=== PATIENT | female | born 1960 | race Asian ===

== ENCOUNTER 2024-08-11 07:36 | Inpatient (IN) | payer MEDICAID ==
[~2024-08-11] VITALS: Ht 154.9 cm; Wt 69.3 kg
[2024-08-11] VITALS (7 sets, daily range): BP systolic 113–120; BP diastolic 56–72; PULSE 74–99; RESP 12–20; TEMP 98–98.7; O2SAT 92–98
[~2024-08-11 07:36] MED LIST: ALBU108A5 IN; CELE200C PO; LISI-275 PO; MONT-8 PO
[2024-08-11] MEDS: ceFAZolin 2 GM/D5W50ml 50 ML IV ONE (07:49)
[2024-08-11] MEDS: EPINEPHrine HCL 1 MG/1 ML AMP ONE (08:09)
[2024-08-11] MEDS: VANCOMYCIN HCL 1000 MG VL ONE (08:10)
[2024-08-11] MEDS: KETOROLAC TROMETH 30 MG/ML 1ML VIAL ONE (08:10)
[2024-08-11] MEDS: TRANEXAMIC ACID 20 ML ONE (08:11)
[2024-08-11] MEDS: ROPIVACAINE 0.5% (5MG/ML) 20ML AMPULE IJ ONE (08:11)
[2024-08-11] MEDS ORDERED: KETOROLAC TROMETH 30 MG/ML 1ML VIAL ONE (08:28)
[2024-08-11] MEDS: GABAPENTIN 300 MG CAP PO ONE (08:28)
[2024-08-11] MEDS ORDERED: KETAMINE 50mg/ML 1ml syringe ONE (08:28)
[2024-08-11] MEDS: ACETAMINOPHEN IV 1000 MG/100ML (10MG/ML) IV ONE (08:28)
[2024-08-11] MEDS ORDERED: ONDANSETRON HCL 4 MG/2 ML VIAL ONE (08:28)
[2024-08-11] MEDS ORDERED: GLYCOPYRROLATE 0.2 MG/ML 1ML VIAL ONE (08:28)
[2024-08-11] MEDS ORDERED: LIDOCAINE 1% INJ PF 5ML AMP ONE (08:28)
[2024-08-11] MEDS: CELECOXIB 100 MG CAP PO ONE (08:28)
[2024-08-11] MEDS ORDERED: PROPOFOL 10 MG/ML 20 ML IV ONE (08:28)
[2024-08-11] MEDS ORDERED: DexAMETHasone SOD PHOS 10MG/1ML VIAL INJ ONE (08:28)
[2024-08-11] MEDS: CEFEPIME 1GM/ 50ML 50 ML IV ONE (08:34)
[2024-08-11] MEDS ORDERED: EPINEPHrine HCL 1 MG/1 ML AMP ONE (08:38)
[2024-08-11] MEDS ORDERED: PHENYLEPHRINE HCL 10 MG/ML VL ONE (08:52)
[2024-08-11] MEDS ORDERED: SODIUM CHLORIDE LOCK 10 ML ONE (08:52)
[2024-08-11] MEDS ORDERED: oxyCODONE HCL 5MG TAB PO PRN ×2 (10:15→10:45)
[2024-08-11] MEDS ORDERED: ACETAMINOPHEN 325 MG TAB PO PRN (10:15)
[2024-08-11] MEDS: D5W/LACTATED RINGERS 1,000 ML IV SCH (10:15)
--- NOTE | 2024-08-11 10:19 | DVHOP2 ---
Operative Report - 2 Report Details Date: 08/11/24 Preop Diagnosis: Left knee degenerative arthritis Postop Diagnosis: Left knee degenerative arthritis Surgeon: Fabián Martin MD Commodity Lead: Mirella LEYVA Anesthesiologist: Edwardo Young CRNA Anesthesia: Regional Drains: Tony closed wound suction Implant: DonJoy size four femur PS, size three tibial base plate, size 10 poly insert Consent: The patient was informed of the risks and benefits of the procedure. These include but are not limited to complications of anesthesia, postoperative infection, incomplete relief of symptoms, recurrence of symptoms, damage to blood vessels, nerves and tendons, deep venous thrombosis, pulmonary embolism and possible need for repeat surgery in the future. Complications: None Estimated Blood Loss: 25 cc Fluids: See anesthesia record Findings: Varus deformity, osteophytes, denuded cartilage with eburnated bone Indications for Surgery: Left knee degenerative arthritis with severe pain and functional impairment despite nonoperative management Name of Procedure Performed Left total knee arthroplasty Procedure Details Procedure Details: The patient was brought to the operating room and placed on the table in the supine position after being given spinal anesthetic with adequate analgesia obtained. Surgical timeout was performed verifying patient, laterality and pr ocedure Preop patient received IV cefepime IV Ancef and IV tranexamic acid. Tourniquet was applied to the lower extremity. Extremity was elevated, exsanguinated Esmarch, and tourniquet inflated. Lower extremity was prepped and draped in sterile fashion. Midline incision was made followed by medial arthrotomy. I exposed the anterior medial and lateral tibial plateau and the a nterior distal femur. Bovie and aqua mantis were used for hemostasis. I excised the anterior meniscal tissue with Bovie. I excised a portion of the fat pad with Bovie. The patella was everted and the knee flexed. I drilled the distal femur and suctioned the hole to reduce the risk of fat emboli. I inserted intramedullary guide with 5 degree valgus setting. I pinned the distal femoral cutting block anteriorly. Intramedullary oskar was removed. Distal femoral cut was made and the block removed. I brought my attention to the tibia setting up the external cutting jig for the tibia paying attention to slope, rotation and varus valgus alignment. I set the depth and pinned the block. I used the external alignment oskar to aid in checking alignment. Bone cut was made and bone removed releasing soft tissue attachments with Bovie. Cutting block removed. I then checked the extension gap and deemed adequate and removed the femur and tibia pins. I flexed the knee and applied the femoral sizing guide to the femur. I checked the size and external rotation setting at 90 degrees to Whitesides line and checking the epicondylar axis. I drilled the holes then removed the sizing guide and pin. I then tapped on the 4 in 1 cutting block and checked with the rona wing anteriorly to make sure that I would not notch then pinned the block. Cuts were made and the block and pins were removed. Bone was removed with curved osteotome. I used a rongeur to remove any remaining osteophytes at the femur and tibia. I then used a lamina bullet lubricating machine operator to open up the back alternating between the medial and lateral side. Any remaining meniscal tissue was excised with scalpel. I used curved osteotome, curette and rongeur to remove any posterior osteophytes. I prophylactically coagulated with aqua mantis. I then tapped on the template for the box cut and pinned it. Box cut was made and bone removed. Template and pin removed. I then tapped on the femoral trial. I then brought my attention back to the tibia sizing it. I used the external alignment oskar to make sure that rotation and alignment were good. I made a Bovie romina at the tibial tray romina identifying rotation for later use. I tried various tibial polytrials. The patella tracked nicely without thumb pressure. I removed the trials. I pinned the tray and used the reamer and keel punch. The implants were brought into the field while bone preparation was started. I used normal saline irrigation to prepare the bone. I grafted with the femoral tunnel. Once cement was ready I applied cement to the tibial implant and tibial bone tapped it on and removed excess cement in usual fashion. In similar fashion I tapped on the femoral implant. I inserted the trial polyethylene and brought the knee into 30 degrees flexion. I irrigated with xperience irrigant. Once cement cured, I checked stability and range of motion as well as patella tracking. tourniquet was released and hemostasis maintained with aqua mantis. I inserted the polyethylene and again checked stability. I used a 2 grams of vancomycin half of which was placed deep and half superficial. I repaired the extensor mechanism with the knee in flexion with #1 Ethibond interrupted [id number]. Deep subcutaneous tissue was closed with 0 Vicryl. Superficial subcutaneous tissue was closed with 2-0 vicryl interrupted. Skin was closed with yvette. I then applied the [tony closed wound suction]. Patient tolerated the procedure well and was brought to recovery room in stable condition. Condition Stable Disposition Still a Patient FABIÁN MARTIN MD Aug 11, 2024 10:19
[2024-08-11] MEDS ORDERED: ALBUTEROL SULF 2.5 MG/0.5ML(0.5%) NEB SOLN NEB PRN (10:30)
[2024-08-11] MEDS ORDERED: HYDROmorphone HCL 2 MG/ML VL/or syr IV PRN (10:45)
[2024-08-11] MEDS ORDERED: hydrALAZINE HCL 20 MG/ML VL IV PRN (10:45)
[2024-08-11] MEDS ORDERED: NALOXONE HCL 0.4 MG/ML VIAL IV PRN (10:45)
[2024-08-11] MEDS ORDERED: FLUMAZENIL 0.1 MG/ML INJ 10ML MDV IV PRN (10:45)
[2024-08-11] MEDS ORDERED: fentaNYL CITRATE 100 MCG/2 ML VL IV PRN (10:45)
[2024-08-11] MEDS ORDERED: ONDANSETRON HCL 4 MG/2 ML VIAL IV PRN (10:45)
[2024-08-11] MEDS ORDERED: ePHEDrine SULFATE 50 MG/ML AMP IV PRN (10:45)
--- NOTE | 2024-08-11 11:23 | DVH ---
CLINICAL INDICATION: Postop TECHNIQUE: 3 radiographic views of the left knee were obtained. Comparison: None FINDINGS/IMPRESSION: Post surgical changes from left knee arthroplasty.
--- NOTE | 2024-08-11 11:42 | DVHINCON2 ---
Date Seen: Aug 11, [address] Kern Allergies: Coded Allergies: Amoxicillin (Unverified Allergy, Intermediate, Itchy, 08/09/24) Home Meds Reported Medications Albuterol Sulfate (Albuterol Sulfate Hfa) Unknown Strength Aer, IN PRN, AER 08/09/24 Celecoxib (Celebrex) 200 Mg Cap, 1 CAP PO PRN, #30 CAP 2 Refills 08/09/24 Lisinopril (Lisinopril) 5 Mg Tab, 5 MG PO DAILY for 30 Days, MG 08/09/24 Montelukast Sodium (MONTELUKAST SODIUM) 10 Mg Tab, 1 TAB PO DAILY, #30 TAB 5 Refills 08/09/24 Current Medications Current Medications Medications (Trade) Dose Ordered Sig/Daniel Route PRN Reason Start Time Stop Time Status Last Admin Lisinopril (Zestril Tablet) 5 mg DAILY PO 08/12/24 10:00 Montelukast Sodium (Singulair Tablet) 10 mg HS PO 08/11/24 22:00 Dextrose/Lactated Ringer's 1,000 ml @ 100 mls/hr Q10H IV 08/11/24 10:15 Acetaminophen (Tylenol Tablet) 650 mg Q4HP PRN PO MILD PAIN (1-3 PAIN SCALE) 08/11/24 10:15 Cefazolin Sodium/ Dextrose 50 ml @ 50 mls/hr Q8H IV 08/11/24 16:00 08/12/24 00:59 Acetaminophen (Tylenol Tablet) 650 mg Q6HR PO 08/11/24 12:00 Ketorolac Tromethamine (Toradol Injection) 15 mg Q6HR IV 08/11/24 12:00 08/16/24 11:59 Pregabalin (Lyrica Capsule) 50 mg BID PO 08/11/24 22:00 Oxycodone HCl 5 mg Q4HP PRN PO MODERATE PAIN (4-6 PAIN SCALE) 08/11/24 10:15 Oxycodone HCl 10 mg Q4HP PRN PO SEVERE PAIN (7-10 PAIN SCALE) 08/11/24 10:15 Aspirin 81 mg BID PO 08/12/24 10:00 Albuterol (Ventolin Medneb) 2.5 mg Q6HPRN PRN NEB SHORTNESS OF BREATH 08/11/24 10:30 Ondansetron HCl (Zofran) 4 mg ONCE PRN IV NAUSEA / VOMITING 08/11/24 10:45 08/11/24 10:46 DC Naloxone HCl (Narcan) 0.4 mg Q10M PRN IV NARCOTIC REVERSAL 08/11/24 10:45 08/11/24 11:06 DC Flumazenil (Romazicon Injection) 0.2 mg ONCE PRN IV BENZODIAZEPINE REVERSAL 08/11/24 10:45 08/11/24 10:46 DC Hydralazine HCl (Apresoline Injection) 5 mg Q10M PRN IV SBP>160 08/11/24 10:45 08/11/24 11:36 DC Ephedrine Sulfate (ePHEDrine SULFATE) 10 mg Q10M PRN IV SBP LESS THAN 90 08/11/24 10:45 08/11/24 11:26 DC Fentanyl Citrate 25 mcg Q1HP PRN IV BREAKTHROUGH PAIN (7-10) 08/11/24 10:45 08/11/24 14:00 Hydromorphone HCl (Dilaudid Injection) 0.5 mg Q10M PRN IV SEVERE PAIN (7-10 PAIN SCALE) 08/11/24 10:45 08/11/24 14:00 Oxycodone HCl 10 mg ONCE PRN PO MODERATE PAIN (4-6 PAIN SCALE) 08/11/24 10:45 08/11/24 14:00 Vital Signs Vital Signs Date Time Temp Pulse Resp B/P (MAP) Pulse Ox O2 Delivery O2 Flow Rate FiO2 08/11/24 07:50 97.5 75 16 142/71 (94) 97 97.5 Assessment see dictated note Plan discussed with: Patient Date of Service: Aug 11, 2024 Billing Provider: DAPHNEY VARGHESE MD Common Visit Codes: [id number] INP/OBS CARE (HIGH) DAPHNEY VARGHESE MD Aug 11, 2024 11:42
--- NOTE | 2024-08-11 12:09 | DVHINCON2 ---
INTERNAL MEDICINE CONSULT HISTORY OF PRESENT ILLNESS: The patient is a 63-year-old lady who was admitted after she underwent surgery on the left knee for DJD of the knee. The patient at this time denies any chest pain, shortness of breath, nausea, vomiting and no significant pain. REVIEW OF SYSTEMS: Review of rest of systems are otherwise currently negative. PAST MEDICAL HISTORY: Significant for hypertension and asthma. MEDICATIONS: She takes albuterol, Singulair and lisinopril. ALLERGIES: AMOXICILLIN. SOCIAL HISTORY: Denies smoking or alcohol. Lives at home with her daughter. FAMILY HISTORY: Negative. PHYSICAL EXAMINATION: GENERAL: The patient is awake, alert. VITAL SIGNS: Temperature of 97.5, pulse 75 per minute, blood pressure 142/71. SHEENT: Unremarkable. NECK: There is no JVD, no pedal edema. LUNGS: Equal bilaterally. No added sounds. CARDIOVASCULAR: S1, S2 is regular, no murmurs. ABDOMEN: Soft. There is no organomegaly. NEUROLOGIC: Nonfocal. MUSCULOSKELETAL: The left knee is currently in a dressing. ASSESSMENT AND PLAN: * Hypertension, for which the patient will be resumed on lisinopril. * Asthma. She will continue on Singulair and p.r.n. albuterol. * Status post left knee surgery for DJD of the knee for which she will receive pain medications and physical therapy. MD LUCY Marin/MICHAEL TID: [id number] RECEIPT: [id number]
[2024-08-11] MEDS: KETOROLAC TROMETH 30 MG/ML 1ML VIAL IV SCH (14:31)
[2024-08-11] MEDS: ACETAMINOPHEN 325 MG TAB PO SCH (14:31)
[2024-08-11] MEDS: ceFAZolin 2 GM/D5W50ml 50 ML IV SCH (15:35)
[2024-08-11] MEDS: PREGABALIN 25 MG CAP PO SCH (21:42)
[2024-08-11] MEDS: MONTELUKAST SODIUM 10 MG TAB PO SCH (21:42)
[2024-08-11] MEDS: oxyCODONE HCL 5MG TAB PO PRN (21:43)
[2024-08-12 00:40] VITALS: BP 99/53; PULSE 86; RESP 18; TEMP 98.1; O2SAT 94
[2024-08-12 05:06] VITALS: BP 108/52; PULSE 75; RESP 18; TEMP 97.9; O2SAT 93
[2024-08-12 06:12] VITALS: O2SAT 99
[2024-08-12 07:18] LABS: Basophils # (auto) 0.1 10 ^3/uL (0-0.2); Basophils % (auto) 0.4 % (0.0-2.0); Eosinophils # (auto) 0 10 ^3/uL (0-0.8); Hematocrit 36.4 % (36.0-46.0); Lymphocytes # (auto) 1.4 10 ^3/uL (0.4-5.4); Lymphocytes % (auto) 10.1 % (10.0-50.0); Mean Corpuscular Hemoglobin 28.3 pg (28.0-32.0); Mean Corpuscular Volume 85.8 fL (80.0-100.0); Monocytes # (auto) 1.1 10 ^3/uL (0-1.3); Monocytes % (auto) 7.9 % (0.0-12.0); Neutrophils % (auto) 81.6 % (37.0-80.0); Platelet Count (auto) 231 10^3/uL (140-450); Red Blood Cells 4.24 10^6/uL (4.0-5.20); Red Cell Distribution Width 13.9 % (11.8-14.3); White Blood Cell 13.5 10^3/uL (4.4-10.8)
[2024-08-12 07:21] LABS: Alanine Aminotransferase 27 U/L (7-40); Albumin 3.6 g/dL (3.2-4.8); Alkaline Phosphatase 70 U/L (46-116); Anion Gap 10 (5-15); Aspartate Aminotransferase 22 U/L (13-40); BUN/Creatinine Ratio 17.8 (10.0-20.0); Blood Urea Nitrogen 16 mg/dL (9-23); Calcium 9.5 mg/dL (8.7-10.4); Carbon Dioxide 23 mmol/L (20-31); Chloride 106 mmol/L (98-107); Potassium 3.8 mmol/L (3.5-5.1); Sodium 139 mmol/L (136-145); Total Protein 5.9 g/dL (5.7-8.2)
[2024-08-12 07:22] LABS: Bilirubin, Total 0.4 mg/dL (0.2-1.0)
[2024-08-12 07:23] LABS: Glucose 347 mg/dL (74-106)
[2024-08-12 09:00] VITALS: BP 122/52; PULSE 73; RESP 20; TEMP 98; O2SAT 96
[2024-08-12] MEDS: ASPirin 81 mg TAB PO SCH (09:48)
[2024-08-12] MEDS: LISINOPRIL 5 MG TAB PO SCH (09:54)
--- NOTE | 2024-08-12 10:18 | DVHPN2 ---
Progress Note Date Seen: Aug 12, 2024 Medical Necessity Reason Pt with a Central, PICC or Fol: No Subjective Patient reports: No new complaints Review of Systems: HEENT:Normal, CVS:Normal, RESPIRATORY:Normal, GI:Normal, :Normal, MSK:Normal, NEURO:Normal Objective vital signs Vital Sign Date Time Temp Pulse Resp B/P (MAP) Pulse Ox O2 Delivery O2 Flow Rate FiO2 08/12/24 09:54 122/52 08/12/24 06:12 99 Room Air 0.0 08/12/24 06:12 21 21 08/12/24 05:06 97.9 75 18 97.9 Total Intake and Output 08/11/24 08/11/24 08/12/24 15:00 23:00 07:00 Intake Total 220 ml 750 ml 750 ml Output Total 600 ml Balance 220 ml 150 ml 750 ml medications Current Medications Medications Dose Ordered Sig/Daniel Route Start Time Stop Time Status Last Admin Dose Admin Lisinopril 5 mg DAILY PO 08/12/24 10:00 08/12/24 09:54 5 MG Montelukast Sodium 10 mg HS PO 08/11/24 22:00 08/11/24 21:42 10 MG Dextrose/Lactated Ringer's 1,000 ml @ 100 mls/hr Q10H IV 08/11/24 10:15 08/12/24 06:16 100 MLS/HR Acetaminophen 650 mg Q4HP PRN PO 08/11/24 10:15 Acetaminophen 650 mg Q6HR PO 08/11/24 12:00 08/12/24 06:14 650 MG Ketorolac Tromethamine 15 mg Q6HR IV 08/11/24 12:00 08/16/24 11:59 08/12/24 06:15 15 MG Pregabalin 50 mg BID PO 08/11/24 22:00 08/12/24 09:53 50 MG Oxycodone HCl 5 mg Q4HP PRN PO 08/11/24 10:15 08/11/24 21:43 5 MG Oxycodone HCl 10 mg Q4HP PRN PO 08/11/24 10:15 Aspirin 81 mg BID PO 08/12/24 10:00 08/12/24 09:48 81 MG Albuterol 2.5 mg Q6HPRN PRN NEB 4/9/25 10:30 Examination: GENERAL:Normal, HEENT:Normal, NECK:Normal, LUNGS:Normal, CVS:Normal, ABDOMEN:Normal, MSK:Normal, SKIN:Normal, NEURO:Normal, :Normal laboratory and microbiology Laboratory Tests 08/12/24 05:15 Test 08/12/24 05:15 Range/Units Serum Glucose 347 H 74-106 mg/dL Problem List/Assessment/Plan Problem List/Assessment/Plan * Hypertension, for which the patient will be resumed on lisinopril * gerd: ppi * Asthma. She will continue on Singulair and p.r.n. albuterol. * Status post left knee surgery for DJD of the knee for which she will receive pain medications and physical therapy. advance care planning- full code- time spent 19 mins Plan discussed with: Patient, Son My Orders My Orders Orders - DAPHNEY VARGHESE MD Procedure Category Date Status Time Urinalysis LAB 08/11/24 Uncollected 11:40 Date of Service: Aug 12, 2024 Billing Provider: DAPHNEY VARGHESE MD Common Visit Codes: [id number] INP/OBS CARE(HIGH) Secondary Visit Codes: [id number] CARE PLAN 30 MINUTES DAPHNEY VARGHESE MD Aug 12, 2024 10:18
[2024-08-12] MEDS: PANTOPRAZOLE 40 MG TAB PO ONE (10:33)
--- NOTE | 2024-08-12 11:15 | DVHDS2 ---
Discharge Summary Date of Admission Aug 11, 2024 at 10:15 Date of Discharge: Aug 12, 2024 Labs/Diagnostic Data: Laboratory Results Test 08/12/24 05:15 08/11/24 17:36 White Blood Count 13.5 10^3/uL (4.4-10.8) Red Blood Count 4.24 10^6/uL (4.0-5.20) Hemoglobin 12.0 g/dL (12.2-16.2) Hematocrit 36.4 % (36.0-46.0) Mean Corpuscular Volume 85.8 fL (80.0-100.0) Mean Corpuscular Hemoglobin 28.3 pg (28.0-32.0) Mean Corpuscular Hemoglobin Concent 33.0 g/dL (32.0-36.0) Red Cell Distribution Width 13.9 % (11.8-14.3) Platelet Count 231 10^3/uL (140-450) Mean Platelet Volume 9.1 fL (6.9-10.8) Neutrophils (%) (Auto) 81.6 % (37.0-80.0) Lymphocytes (%) (Auto) 10.1 % (10.0-50.0) Monocytes (%) (Auto) 7.9 % (0.0-12.0) Eosinophils (%) (Auto) 0.0 % (0.0-7.0) Basophils (%) (Auto) 0.4 % (0.0-2.0) Neutrophils # (Auto) 11.0 10 ^3/uL (1.6-8.6) Lymphocytes # (Auto) 1.4 10 ^3/uL (0.4-5.4) Monocytes # (Auto) 1.1 10 ^3/uL (0-1.3) Eosinophils # (Auto) 0 10 ^3/uL (0-0.8) Basophils # (Auto) 0.1 10 ^3/uL (0-0.2) Nucleated Red Blood Cells 0.0 % Sodium Level 139 mmol/L (136-145) Potassium Level 3.8 mmol/L (3.5-5.1) Chloride Level 106 mmol/L (98-107) Carbon Dioxide Level 23 mmol/L (20-31) Anion Gap 10 (5-15) Blood Urea Nitrogen 16 mg/dL (9-23) Creatinine 0.90 mg/dL (0.550-1.02) Glomerular Filtration Rate Calc 71 mL/min (>90) BUN/Creatinine Ratio 17.8 (10.0-20.0) Serum Glucose 347 mg/dL (74-106) Calcium Level 9.5 mg/dL (8.7-10.4) Total Bilirubin 0.4 mg/dL (0.2-1.0) Aspartate Amino Transferase (AST) 22 U/L (13-40) Alanine Aminotransferase (ALT) 27 U/L (7-40) Alkaline Phosphatase 70 U/L (46-116) Total Protein 5.9 g/dL (5.7-8.2) Albumin 3.6 g/dL (3.2-4.8) Other Laboratory Tests 08/12/24 05:15 Brief Hx & Hospital Course: Patient was brought to the hospital yesterday to undergo a total knee arthroplasty. She tolerated the procedure well without complications and was kept overnight for postoperative observation. She has remained medically stable denying any overnight events and reports some postoperative knee pain that is being well managed with the help of pain medication. Patient reports that she was able to get up and walk with the help of physical therapy and her walker and was able to get down to the nurse's station and back to her room with minimal pain. Patient is otherwise feeling well denying any other complaints or concerns during my evaluation and is ready to go home. Condition at Discharge: Stable Final Diagnosis/Problems List Left knee degenerative arthritis Discharge Disposition: Home Discharge Instruct/Medications Diet: Regular Activity: See Comment Activity comment: Patient to remain weight-bearing as tolerated with the assistance of a walker Follow Up/Referral: Patient instructed to follow up with our office in 10-14 days for her 1st postoperative evaluation Medications: Rx sent via our outpatient EMR system Discharge Statement: "Patient was advised to return to the ER or call 911 if any headaches, dizziness, shortness of breath, chest pain, abdominal pain, bleeding, fevers, or worsening of medical condition. Patient was counseled about treatment plan, medications, possible side effects, patientverbalized understanding. All questions were answered to the best of my ability. This discharge took greater then 30 minutes in planning, reviewing documentation, counseling the patient, and discussing with other team members." ASSESSMENT ASSESSMENT Assessment Left knee degenerative arthritis TO SOUSA Aug 12, 2024 11:15
--- NOTE | 2024-08-12 11:16 | DVHPN2 ---
Progress Note - Dictate Date Seen: Aug 12, 2024 Medical Necessity Reason Pt with a Central, PICC or Fol: No Subjective Patient was lying comfortably in bed during my evaluation reports some postoperative knee pain that is being well managed with the help of pain medication. The patient reports that she was able to get up and walk with the help of physical therapy and her walker and was able to get down the eason to the nurse's station and back to her room with minimal pain. Patient is otherwise feeling well denying any other complaint or concern during my evaluation and would like to go home. vital signs Vital Sign Date Time Temp Pulse Resp B/P (MAP) Pulse Ox O2 Delivery O2 Flow Rate FiO2 08/12/24 09:54 122/52 08/12/24 06:12 99 Room Air 0.0 08/12/24 06:12 21 21 08/12/24 05:06 97.9 75 18 97.9 Total Intake and Output 08/11/24 08/11/24 08/12/24 15:00 23:00 07:00 Intake Total 220 ml 750 ml 750 ml Output Total 600 ml Balance 220 ml 150 ml 750 ml medications Current Medications Medications Dose Ordered Sig/Daniel Route Start Time Stop Time Status Last Admin Dose Admin Lisinopril 5 mg DAILY PO 08/12/24 10:00 08/12/24 09:54 5 MG Montelukast Sodium 10 mg HS PO 08/11/24 22:00 08/11/24 21:42 10 MG Dextrose/Lactated Ringer's 1,000 ml @ 100 mls/hr Q10H IV 08/11/24 10:15 08/12/24 06:16 100 MLS/HR Acetaminophen 650 mg Q4HP PRN PO 08/11/24 10:15 Acetaminophen 650 mg Q6HR PO 08/11/24 12:00 08/12/24 06:14 650 MG Ketorolac Tromethamine 15 mg Q6HR IV 08/11/24 12:00 08/16/24 11:59 08/12/24 06:15 15 MG Pregabalin 50 mg BID PO 08/11/24 22:00 08/12/24 09:53 50 MG Oxycodone HCl 5 mg Q4HP PRN PO 08/11/24 10:15 08/11/24 21:43 5 MG Oxycodone HCl 10 mg Q4HP PRN PO 08/11/24 10:15 Aspirin 81 mg BID PO 08/12/24 10:00 08/12/24 09:48 81 MG Albuterol 2.5 mg Q6HPRN PRN NEB 08/11/24 10:30 Pantoprazole Sodium 40 mg DAILY@0600 PO 08/13/24 06:00 objective A&O x4 in no acute distress Knee range of motion grossly limited with pain on movement Germania dressing clean, dry, intact, and maintaining suction No distal edema or calf tenderness to palpation Neurovascularly intact with cap refill less than 2 seconds laboratory and microbiology Laboratory Tests 08/12/24 05:15 Test 08/12/24 05:15 Range/Units Serum Glucose 347 H 74-106 mg/dL Assessment/Plan Patient to be discharged home and advised to remain weight-bearing as tolerated with the assistance of a walker. Advised the patient to maintain her dressings clean, dry, intact, and maintaining suction and to follow up with our office in 10-14 days for her 1st postoperative evaluation. I also instructed the patient to call our office if she has any other remaining questions or concerns. Rx sent via our outpatient EMR system. She understood and agreed. Plan discussed with: Patient TO SOUSA Aug 12, 2024 11:16
[2024-08-12 13:00] VITALS: BP 112/59; PULSE 68; RESP 18; TEMP 98.2; O2SAT 94
[2024-08-13] MEDS ORDERED: PANTOPRAZOLE 40 MG TAB PO SCH (06:00)
== END 2024-08-12 14:20 | disposition home or self-care (01) | DRG 326 ==
LOC: SUR 07:36 → OVERFLOW 10:15 → CENTRAL 11:38
PROVIDERS: ADMIT Internal Medicine; ATTEND Internal Medicine
PROC: 0SRD069 Replacement of Left Knee Joint with Oxidized Zirconium on Polyethylene Synthetic Substitute, Cemented, Open Approach (ICD-10-PCS; principal; 2024-08-11 08:38)
DX: M17.12 Unilateral primary osteoarthritis, left knee (principal); I10 Essential (primary) hypertension; J45.909 Unspecified asthma, uncomplicated; Z88.1 Allergy status to other antibiotic agents; Z79.1 Long term (current) use of non-steroidal anti-inflammatories (NSAID)
CPT/HCPCS: 36415; 73562; 80053; 85025; 86850; 86900; 86901; 87340; 97116; 97163; 97530; G0378; J0131; J0171; J1100; J1885; J2405; J2704